=== PATIENT | male | born 1970 | race Hispanic/Latino ===

== ENCOUNTER 2018-04-22 13:59 | Emergency (ER) | payer OTHER ==
[2018-04-22] MEDS ORDERED: Fentanyl 100 MCG/2 ML VIAL ONE (14:16)
--- NOTE | 2018-04-22 14:26 | RAD ---
LEFT FEMUR 2 VIEWS: Date: 04/22/18 HISTORY: Injured by cow. FINDINGS: Femur is intact. No acute fracture, dislocation, or radiopaque foreign bodies are apparent. IMPRESSION: No acute osseous abnormalities are demonstrated. POS: [facility]
--- NOTE | 2018-04-22 14:26 | RAD ---
AP PELVIS 1 VIEW: Date: 04/22/18 HISTORY: injured by a cow. FINDINGS: Sacral ala and pelvic rings are intact. Mild degenerative changes lumbar spine and hips. IMPRESSION: No acute osseous abnormalities are demonstrated. POS: [facility]
--- NOTE | 2018-04-22 14:27 | RAD ---
PORTABLE AP CHEST: Date: 04/22/18 HISTORY: Abdominal pain after being pinned by a cow. Trauma/injury. FINDINGS: Cardiac silhouette and pulmonary vasculature are within normal limits. The lungs are clear. No pneumo thorax is seen on this portable chest x-ray. Degenerative changes are seen in the spine. No obvious f ractures seen. IMPRESSION: 1. No acute cardiopulmonary process. 2. The most inferior aspect left lateral costophrenic angle is excluded from view. POS: [facility]
[2018-04-22 14:42] LABS: #Lymphocytes 1.1 thou/uL (1.20-3.40); #Monocytes 0.4 thou/uL (0.11-0.59); #Neutrophils 5.3 thou/uL (1.40-6.50); %Basophils 0.4 % (0.0-1.0); %Eosinophils 0.5 % (0.0-10.0); %Lymphocytes 16.5 % (21.0-51.0); %Monocytes 5.2 % (0.0-10.0); %Neutrophils 77.2 % (42.0-75.0); Hemoglobin 16.7 g/dL (14.0-18.0); Mean Corpuscular HGB CONC 36.2 g/dL (32.0-36.0); Mean Corpuscular Hemoglobin 33.8 pg (27.0-31.0); Mean Corpuscular Volume 93.5 fl (80.0-94.0); Mean Platelet Volume 8.9 fL (7.4-10.4); Platelet Count 159 thou/uL (130-400); RBC Distribution Width 11.4 % (11.5-14.5); Red Blood Cell (RBC) Count 4.95 mill/uL (4.70-6.10); White Blood Cell (WBC) Count 6.9 thou/uL (4.8-10.8)
[2018-04-22 15:05] LABS: ALT (SGPT) 46 U/L (8-55); AST (SGOT) 31 U/L (5-34); Albumin 4.3 g/dL (3.5-5.0); Alkaline Phosphatase 131 U/L (40-150); Anion Gap 16 mmol/L (10-20); BUN (Urea Nitrogen) 11 mg/dL (8.9-20.6); Calc. Creatinine Clearance 0 mL/min (70-130); Calcium 9.1 mg/dL (7.8-10.44); Carbon Dioxide 19 mmol/L (22-29); Chloride 103 mmol/L (98-107); Estimated GFR-MDRD 79; Globulin 3.4 g/dL (2.4-3.5); Glucose 332 mg/dL (70-105); Potassium 3.6 mmol/L (3.5-5.1); Protein, Total 7.7 g/dL (6.0-8.3); Sodium 134 mmol/L (136-145)
[2018-04-22] MEDS ORDERED: Ketorolac Tromethamine 30 MG/ML VIAL ONE (15:08)
--- NOTE | 2018-04-22 15:12 | CT ---
CT ABDOMEN AND PELVIS WITH IV CONTRAST CT LUMBAR SPINE NONCONTRAST: Date: 04/22/18 HISTORY: Injured by cow. Abdomen and back injury. FINDINGS: Mild atelectasis at the lung bases. Liver, spleen, left kidney, adrenal glands, and pancreas have a n ormal CT appearance. Dystrophic calcification at the cortex superior pole right kidney. Calcification in the arterial structures. Diverticula of the colon without adjacent inflammation. No free fluid. U rinary bladder intact. Degenerative changes throughout the lumbar spine. Bilateral spondylolysis and Grade II spondylolisthe sis at the L4-5 level with sclerotic margins. Disc space narrowing and gas disc phenomenon. No acute fracture or dislocation. IMPRESSION: Incidental type findings as detailed above. No acute traumatic injury is demonstrated. Findings called to Dr. Hodges at 1456 hours. CODE CR. POS: [facility]
[2018-04-22] MEDS ORDERED: ISOVUE-370 76%-LOCM 1 ML ONE (16:33)
== END 2018-04-22 15:52 | disposition home or self-care (01) ==
LOC: ERS 13:59
DX: S70.02XA Contusion of left hip, initial encounter (principal); S70.01XA Contusion of right hip, initial encounter; S70.12XA Contusion of left thigh, initial encounter; I10 Essential (primary) hypertension; X58.XXXA Exposure to other specified factors, initial encounter
CPT/HCPCS: 71045; 72170; 74177; 80053; 85025; 96374; 96375; G0390; J1885; J3010